=== PATIENT | male | born 1945 | race Caucasian/White ===

== ENCOUNTER 2017-08-05 02:23 | Inpatient (IN) | payer MEDICARE, OTHER ==
[~2017-08-05] VITALS: Ht 193 cm; Wt 100.3 kg
[2017-08-05 02:42] VITALS: BP 114/78; PULSE 109; RESP 20; TEMP 97.8; O2SAT 97
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
[2017-08-05 03:45] LABS: ALT (GPT) 25 U/L (12-78); ANION GAP 10 MEQ/L (5-15); AST (GOT) 24 U/L (15-37); BICARBONATE 24.7 MEQ/L (21.0-32.0); BLOOD UREA NITROGEN 32 MG/DL (7-18); CHLORIDE 105 MEQ/L (98-107); GLOMERULAR FILTRATION RATE 55 ML/MIN (>89); POTASSIUM 3.7 MEQ/L (3.5-5.1); SODIUM (NA) 140 MEQ/L (136-145)
[2017-08-05 03:46] LABS: ALCOHOL LESS THAN 3 MG/DL (0-5)
[2017-08-05 03:49] LABS: AUTOMATED NEUTROPHIL # 4.3 TH/MM3 (1.8-7.7); BASOPHIL # 0.1 TH/MM3 (0-0.2); BASOPHIL % 0.9 % (0.0-2.0); EOSINOPHIL # 0.5 TH/MM3 (0-0.4); HEMATOCRIT 31.1 % (39.0-51.0); HEMO FLAGS DIFF FINAL; LYMPH % 25.4 % (9.0-44.0); LYMPHOCYTE # 1.9 TH/MM3 (1.0-4.8); MEAN CELL VOLUME 92.5 FL (80.0-100.0); MEAN CORPUSCULAR HEMOGLOBIN 30.2 PG (27.0-34.0); MEAN CORPUSCULAR HGB CONC 32.6 % (32.0-36.0); MONO % 10.1 % (0.0-8.0); NEUT % 56.6 % (16.0-70.0); PLATELET COUNT 300 TH/MM3 (150-450); RED BLOOD COUNT 3.36 MIL/MM3 (4.50-5.90); WHITE BLOOD COUNT 7.6 TH/MM3 (4.0-11.0)
[2017-08-05 03:55] LABS: ALKALINE PHOSPHATASE 54 U/L (45-117); TOTAL BILIRUBIN ADULT 0.7 MG/DL (0.2-1.0)
[2017-08-05 06:20] VITALS: BP 124/83; PULSE 96; RESP 18; O2SAT 99
[2017-08-05 06:52] LABS: BLOOD, URINE NEG (NEG); COMMENT (UR) CULT NOT INDICATED; CULTURE IF INDICATED CULT NOT INDICATED; GLUCOSE,URINE NEG (NEG); HYALINE CAST, URINE 6 /lpf (RARE); KETONE, URINE 40 mg/dL (NEG); MUCUS URINE FEW /lpf (OCC); NITRITE,URINE NEG (NEG); URINE COLOR YELLOW (YELLW/STRAW)
[2017-08-05 08:45] VITALS: BP 91/60; PULSE 140; RESP 18; TEMP 98.5; O2SAT 96
[2017-08-05 10:19] VITALS: BP 111/69; PULSE 66; RESP 18
[2017-08-05] MEDS ORDERED: diphenhydrAMINE HCL 25 MG CAP PO ONE (14:15)
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
[2017-08-05] MEDS ORDERED: LORazepam 2 MG/ML VIAL IV PUSH PRN ×4 (15:00)
[2017-08-05] MEDS ORDERED: LORazepam 2 MG TAB PO PRN (15:00)
[2017-08-05] MEDS ORDERED: LORazepam 1 MG TAB PO PRN (15:00)
[2017-08-05] MEDS ORDERED: FLUMAZENIL 0.5 MG/5 ML VIAL IV PUSH PRN (15:00)
[2017-08-05 15:06] VITALS: BP 145/70; PULSE 101; RESP 16; TEMP 97.6
[2017-08-05] MEDS ORDERED: ALUMINUM/MAGNESIUM/SIMETH 30 ML CUP PO PRN (15:15)
[2017-08-05] MEDS ORDERED: MAGNESIUM HYDROXIDE SUSP 30 ML CUP PO PRN (15:15)
[2017-08-05] MEDS ORDERED: hydrOXYzine HCL 50 MG TAB PO PRN (15:15)
[2017-08-05] MEDS ORDERED: ACETAMINOPHEN 325 MG TAB PO PRN (15:15)
[2017-08-05] MEDS ORDERED: diphenhydrAMINE HCL 50 MG/ML VIAL - HS PRN IM (15:15)
[2017-08-05] MEDS ORDERED: diphenhydrAMINE HCL 50 MG CAP - HS PRN PO (15:15)
[2017-08-05] MEDS ORDERED: LORazepam 2 MG/ML VIAL - age > 65 yrs IM PRN (15:15)
[2017-08-05] MEDS ORDERED: traZODone HCL 50 MG TAB PO PRN (15:15)
[2017-08-05] MEDS ORDERED: LORazepam 0.5 MG TAB age > 65 yrs PO PRN (15:15)
[2017-08-05] MEDS ORDERED: cloNIDine HCL 0.1 MG TAB PO PRN (15:30)
[2017-08-05] MEDS ORDERED: diphenhydrAMINE HCL 50 MG/ML VIAL IM PRN (15:45)
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
[2017-08-05 16:31] LABS: APTT (PATIENT) 25.2 SEC (24.3-30.1); PROTHROMBIN TIME - PATIENT 10.8 SEC (9.8-11.6)
[2017-08-05] MEDS ORDERED: PERMETHRIN 5% CREAM 60 GM TOPICAL ONE ×2 (16:45→21:00)
[2017-08-05] MEDS: THIAMINE HCL 100 MG TAB PO SCH (18:09)
[2017-08-05] MEDS ORDERED: GADODIAMIDE PF 287 MG/ML 20 ML VIAL (for RAD MRI) IVCONTRAST ONE (20:00)
[2017-08-05] MEDS: REMOVE OLD NICOTINE PATCH T-DERMAL SCH (21:00)
--- NOTE | 2017-08-05 21:58 | RADRPT ---
EXAM DATE/TIME: 08/05/2017 21:17 [place] COMPARISON: No previous studies available for comparison. INDICATIONS : Confusion. CONTRAST: 20 cc Omniscan (gadodiamide) IV MEDICAL HISTORY : None. SURGICAL HISTORY : Total knee replacement, right. Colostomy. ENCOUNTER: Initial ACUITY: 1 day PAIN SCORE: 0/10 LOCATION: cranial TECHNIQUE: Multiplanar, multisequence MRI of the brain was performed both prior to and following the administrat ion of paramagnetic contrast. FINDINGS: CEREBRUM: The CSF spaces are enlarged.. No evidence of midline shift, mass lesion, hemorrhage or acute infarct ion. No extraaxial fluid collections are seen. Partial empty sella is noted. WHITE MATTER: Periventricular and subcortical white matter hyperintensities are identified. POSTERIOR FOSSA: The cerebellum and brainstem are intact. The 4th ventricle is midline. The cerebellopontine angle is unremarkable. The cerebellar tonsils are normal in position. DIFFUSION IMAGING: No focal areas of restricted diffusion are seen. No evidence of acute infarction. EXTRACRANIAL: The visualized portions of the orbits and paranasal sinuses are unremarkable. POST-CONTRAST: No abnormal areas of parenchymal or dural enhancement. No evidence of blood-brain barrier breakdown. CONCLUSION: 1. Generalized atrophy with diffuse volume loss and enlargement of the ventricles. 2. Mild to moderate T2 hyperintense changes in the cerebral white matter characteristic of chronic mi crovascular ischemic disease. 3. No evidence of acute infarct, hemorrhage, mass or edema. Mars Corona MD on August 05, 2017 at 21:53 Board Certified Radiologist. This report was verified electronically.
[2017-08-05] MEDS: MAGNESIUM OXIDE 400 MG TAB PO SCH (22:44)
[2017-08-05] MEDS: ATORVASTATIN 40 MG TAB PO SCH (22:45)
[2017-08-05] MEDS: LACTULOSE SYRUP 20 GM/30 ML CUP PO SCH (22:45)
[2017-08-05] MEDS: diphenhydrAMINE HCL 25 MG CAP PO PRN (22:45)
[2017-08-06 06:00] VITALS: BP 126/89; PULSE 90; RESP 18; TEMP 98.6; O2SAT 95
[2017-08-06] MEDS: NICOTINE 21 MG/24 HR PATCH T-DERMAL SCH (09:00)
[2017-08-06] MEDS: THIAMINE HCL 100 MG TAB PO SCH ×3 (09:14→18:00)
[2017-08-06] MEDS: ASPIRIN EC 81 MG TABEC PO SCH (09:14)
[2017-08-06] MEDS: PANTOPRAZOLE SOD 40 MG DELAYED RELEASE TAB PO SCH (09:14)
[2017-08-06] MEDS: MAGNESIUM OXIDE 400 MG TAB PO SCH ×2 (09:14→21:05)
[2017-08-06] MEDS: FOLIC ACID 1 MG TAB PO SCH (09:14)
[2017-08-06] MEDS: amLODIPine BESYLATE 5 MG TAB PO SCH (09:14)
[2017-08-06] MEDS: LACTULOSE SYRUP 20 GM/30 ML CUP PO SCH ×2 (09:15→21:04)
[2017-08-06 10:53] LABS: AUTOMATED NEUTROPHIL # 3.5 TH/MM3 (1.8-7.7); BASOPHIL # 0.1 TH/MM3 (0-0.2); EOSINOPHIL # 0.7 TH/MM3 (0-0.4); EOSINOPHIL % 11.7 % (0.0-4.0); HEMO FLAGS DIFF FINAL; LYMPH % 23.5 % (9.0-44.0); LYMPHOCYTE # 1.5 TH/MM3 (1.0-4.8); MEAN CORPUSCULAR HEMOGLOBIN 30.5 PG (27.0-34.0); MEAN CORPUSCULAR HGB CONC 32.8 % (32.0-36.0); MONO % 9.4 % (0.0-8.0); NEUT % 54.4 % (16.0-70.0); PLATELET COUNT 304 TH/MM3 (150-450); RED BLOOD COUNT 3.65 MIL/MM3 (4.50-5.90); RED CELL DISTRIBUTION WIDTH 15.2 % (11.6-17.2); WHITE BLOOD COUNT 6.3 TH/MM3 (4.0-11.0)
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
[2017-08-06] MEDS: FERROUS SULFATE 325 MG (65 MG ELEMENTAL IRON) TAB PO SCH ×2 (12:57→16:39)
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
[2017-08-06 14:05] LABS: HEMOGLOBIN A1a 1.1 %; HEMOGLOBIN A1b 0.8 %; HEMOGLOBIN Ao 85.1 %; HEMOGLOBIN P3 5.3 %
[2017-08-06 15:15] LABS: ANION GAP 7 MEQ/L (5-15); BICARBONATE 29.5 MEQ/L (21.0-32.0); BLOOD UREA NITROGEN 20 MG/DL (7-18); CHLORIDE 104 MEQ/L (98-107); GLOMERULAR FILTRATION RATE 90 ML/MIN (>89); MAGNESIUM 2.1 MG/DL (1.5-2.5); SODIUM (NA) 140 MEQ/L (136-145)
[2017-08-06 15:27] LABS: HDL CHOLESTEROL 46.2 MG/DL (40.0-60.0); LDL CHOLESTEROL 63 MG/DL (0-99)
[2017-08-06] MEDS: REMOVE OLD NICOTINE PATCH T-DERMAL SCH (21:00)
[2017-08-06] MEDS: hydrOXYzine HCL 50 MG TAB PO PRN (21:04)
[2017-08-06] MEDS: ATORVASTATIN 40 MG TAB PO SCH (21:05)
[2017-08-06] MEDS: diphenhydrAMINE HCL 25 MG CAP PO PRN (21:05)
[2017-08-07 06:00] VITALS: BP 115/64; PULSE 88; RESP 17; TEMP 99; O2SAT 99
--- NOTE | 2017-08-07 07:33 | HHI.PYPN ---
Subjective Remarks Patient seen and examined. Chart reviewed. Case discussed in treatment team. Per nursing staff, no behavioral issues overnight. Per counselor, she will follow up with [facility] about possible placement there later this week. On my exam, patient remains confused with poor judgement. He says he wants to " get out of here and go to the [facility]," although it is unclear what he will do when he gets there. He continues to speak of his as if she is alive. No physical complaints. Review of Systems ROS Limitations: Poor Historian Except as stated in HPI: all other systems reviewed are Neg Objective Alert: Yes [place]: Person, Place Mood: Calm Affect: Other (mildly irritable) Memory Intact: Comment (remains somewhat impaired on clinical exam) Hallucinations: Other (No AVH) Delusions: Yes Delusion Type: Other (that is still alive) Suicidal: Ideation (No SI) Homicidal: Ideation (No HI) Insight/Judgment Poor Remarks No abnormal motor movements noted. Grooming and hygiene fair. No signs of withdrawal and CIWAs have been 0. Labs Test 08/06/17 09:39 08/06/17 13:20 White Blood Count 6.3 TH/MM3 Red Blood Count 3.65 MIL/MM3 Hemoglobin 11.2 GM/DL Hematocrit 34.0 % Mean Corpuscular Volume 93.0 FL Mean Corpuscular Hemoglobin 30.5 PG Mean Corpuscular Hemoglobin Concent 32.8 % Red Cell Distribution Width 15.2 % Platelet Count 304 TH/MM3 Mean Platelet Volume 6.9 FL Neutrophils (%) (Auto) 54.4 % Lymphocytes (%) (Auto) 23.5 % Monocytes (%) (Auto) 9.4 % Eosinophils (%) (Auto) 11.7 % Basophils (%) (Auto) 1.0 % Neutrophils # (Auto) 3.5 TH/MM3 Lymphocytes # (Auto) 1.5 TH/MM3 Monocytes # (Auto) 0.6 TH/MM3 Eosinophils # (Auto) 0.7 TH/MM3 Basophils # (Auto) 0.1 TH/MM3 CBC Comment DIFF FINAL Differential Comment Blood Urea Nitrogen 20 MG/DL Creatinine 0.84 MG/DL Random Glucose 100 MG/DL Calcium Level 8.4 MG/DL Magnesium Level 2.1 MG/DL Sodium Level 140 MEQ/L Potassium Level 4.0 MEQ/L Chloride Level 104 MEQ/L Carbon Dioxide Level 29.5 MEQ/L Anion Gap 7 MEQ/L Estimat Glomerular Filtration Rate 90 ML/MIN Hemoglobin A1c 5.6 % Triglycerides Level 70 MG/DL Cholesterol Level 123 MG/DL LDL Cholesterol 63 MG/DL HDL Cholesterol 46.2 MG/DL Cholesterol/HDL Ratio 2.66 RATIO Labs reviewed. Anemia improving. GFR improved. MRI brain results reviewed. Atrophy and chronic small vessel disease noted. Reversible causes of dementia labs negative. 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 I will start Aricept 5mg qHS for cognitive impairment. No signs of withdrawal. D/c CIWA. Continue to monitor on the inpatient unit. Continue other medications and care as ordered. Justification for Cont. Inpt. Med changes. High risk for decompensation in less restrictive environment. Discharge Planning Possible transfer to [facility] choice facility later this week. Case discussed with counselor. Request HC Surrog/Guard Advoc?: Yes Jorge Tavera MD Aug 07, 2017 07:33
[2017-08-07] MEDS: LACTULOSE SYRUP 20 GM/30 ML CUP PO SCH ×2 (08:45→20:20)
[2017-08-07] MEDS: THIAMINE HCL 100 MG TAB PO SCH ×3 (08:46→18:57)
[2017-08-07] MEDS: PANTOPRAZOLE SOD 40 MG DELAYED RELEASE TAB PO SCH (08:46)
[2017-08-07] MEDS: amLODIPine BESYLATE 5 MG TAB PO SCH (08:46)
[2017-08-07] MEDS: FOLIC ACID 1 MG TAB PO SCH (08:46)
[2017-08-07] MEDS: MAGNESIUM OXIDE 400 MG TAB PO SCH ×2 (08:46→20:20)
[2017-08-07] MEDS: ASPIRIN EC 81 MG TABEC PO SCH (08:46)
[2017-08-07] MEDS: NICOTINE 21 MG/24 HR PATCH T-DERMAL SCH (08:48)
[2017-08-07] MEDS: FERROUS SULFATE 325 MG (65 MG ELEMENTAL IRON) TAB PO SCH ×2 (11:51→18:57)
[2017-08-07] MEDS: hydrOXYzine HCL 50 MG TAB PO PRN (20:21)
[2017-08-07] MEDS: DONEPEZIL HCL 5 MG TAB PO SCH (20:21)
[2017-08-07] MEDS: diphenhydrAMINE HCL 25 MG CAP PO PRN (20:21)
[2017-08-07] MEDS: ATORVASTATIN 40 MG TAB PO SCH (20:21)
[2017-08-07] MEDS: REMOVE OLD NICOTINE PATCH T-DERMAL SCH (21:00)
[2017-08-08 06:17] VITALS: BP 100/57; PULSE 117; RESP 16; TEMP 98.3; O2SAT 97
--- NOTE | 2017-08-08 07:20 | HHI.PYPN ---
Subjective Remarks Patient seen and examined. Chart reviewed. Case discussed with nursing staff who reports that the patient is somewhat intrusive but no real behavioral problem. On my examination today, the patient remains confused. He believes that he is in [place]. He is able to give the month and year however. He asks me to get his cell phone so that he can call his , saying the 2 haven't spoken in 2 weeks. Mood is described as okay. He denies AVH. No side effects from medications. No physical complaints. He is agreeable to assisted living placement. Review of Systems ROS Limitations: Poor Historian Except as stated in HPI: all other systems reviewed are Neg Objective Alert: Yes [place]: Person, Place Mood: Calm Affect: Blunted Memory Intact: Comment (impaired) Hallucinations: Other (None) Delusions: Yes Delusion Type: Other (continues to believe that is still alive) Suicidal: Ideation (No SI) Homicidal: Ideation (No HI) Insight/Judgment Poor Remarks No motor abnormalities noted. No signs or withdrawal. Labs Labs reviewed. 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 Patient continues to articulate belief that is still alive, but this does not seem very impairing looking at the totality of his case, and I see no indication for antipsychotic treatment at this time. Continue to monitor on the inpatient unit. Continue other medications and care as ordered. Justification for Cont. Inpt. Risk for decompensation Discharge Planning Placement Request HC Surrog/Guard Advoc?: Yes Jorge Tavera MD Aug 08, 2017 07:20
[2017-08-08] MEDS: NICOTINE 21 MG/24 HR PATCH T-DERMAL SCH (09:00)
[2017-08-08] MEDS: FOLIC ACID 1 MG TAB PO SCH (09:51)
[2017-08-08] MEDS: amLODIPine BESYLATE 5 MG TAB PO SCH (09:51)
[2017-08-08] MEDS: THIAMINE HCL 100 MG TAB PO SCH ×3 (09:51→17:50)
[2017-08-08] MEDS: LACTULOSE SYRUP 20 GM/30 ML CUP PO SCH ×2 (09:51→21:21)
[2017-08-08] MEDS: MAGNESIUM OXIDE 400 MG TAB PO SCH ×2 (09:51→21:18)
[2017-08-08] MEDS: ASPIRIN EC 81 MG TABEC PO SCH (09:52)
[2017-08-08] MEDS: PANTOPRAZOLE SOD 40 MG DELAYED RELEASE TAB PO SCH (09:52)
[2017-08-08] MEDS: FERROUS SULFATE 325 MG (65 MG ELEMENTAL IRON) TAB PO SCH ×2 (11:50→16:37)
[2017-08-08] MEDS: DONEPEZIL HCL 5 MG TAB PO SCH (21:00)
[2017-08-08] MEDS: REMOVE OLD NICOTINE PATCH T-DERMAL SCH (21:00)
[2017-08-08] MEDS: hydrOXYzine HCL 50 MG TAB PO PRN (21:18)
[2017-08-08] MEDS: ATORVASTATIN 40 MG TAB PO SCH (21:18)
[2017-08-08] MEDS: diphenhydrAMINE HCL 25 MG CAP PO PRN (21:18)
[2017-08-09] MEDS: hydrOXYzine HCL 50 MG TAB PO PRN (03:00)
[2017-08-09 05:31] VITALS: BP 134/71; PULSE 105; RESP 18; TEMP 96.7; O2SAT 97
[2017-08-09] MEDS: ASPIRIN EC 81 MG TABEC PO SCH (09:00)
[2017-08-09] MEDS: FOLIC ACID 1 MG TAB PO SCH (09:00)
[2017-08-09] MEDS: LACTULOSE SYRUP 20 GM/30 ML CUP PO SCH ×2 (09:00→21:46)
[2017-08-09] MEDS: amLODIPine BESYLATE 5 MG TAB PO SCH (09:00)
[2017-08-09] MEDS: PANTOPRAZOLE SOD 40 MG DELAYED RELEASE TAB PO SCH (09:00)
[2017-08-09] MEDS: NICOTINE 21 MG/24 HR PATCH T-DERMAL SCH (09:00)
[2017-08-09] MEDS: MAGNESIUM OXIDE 400 MG TAB PO SCH ×2 (09:00→21:46)
[2017-08-09] MEDS: THIAMINE HCL 100 MG TAB PO SCH ×3 (09:00→17:58)
[2017-08-09] MEDS ORDERED: NALOXONE HCL 0.4 MG/ML AMP IV PUSH PRN (09:45)
[2017-08-09] MEDS ORDERED: PROCHLORPERAZINE 25 MG SUPP RECTAL PRN (09:45)
[2017-08-09] MEDS ORDERED: PERMETHRIN 1% LOTION 60 ML BTL TOPICAL ONE (10:00)
--- NOTE | 2017-08-09 11:18 | HHI.PYPN ---
Subjective Remarks Patient seen and examined with nurseTarik. Chart reviewed. Case discussed with nursing staff who reports patient had small emesis yesterday afternoon and larger emesis this morning. Hospitalist has already evaluated patient and ordered CT A/P, Compazine suppositories and labs. On my eval, patient is in moderate distress due to ongoing nausea, although he denies ongoing emesis. Says he moved his bowels yesterday. Feels a little dizzy. Abdomen not distended but diffusely tender on exam. No psychiatric complaints at this time. No other physical complaints. Review of Systems ROS Limitations: Poor Historian Except as stated in HPI: all other systems reviewed are Neg Objective Alert: Yes [place]: Person, Place Mood: Anxious Affect: Blunted Memory Intact: Comment (Not formally assessed) Hallucinations: Other (No AVH) Delusions: Yes Delusion Type: Other (None) Suicidal: Ideation (No SI) Homicidal: Ideation (No HI) Insight/Judgment Poor Remarks No motor abnormalities noted. Labs Labs reviewed. 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 NPO except for meds pending CT A/ P to ensure there is no obstruction. Vitals q4h. Transfer to [facility] unit for close monitoring of patient's medical condition. Appreciate hospitalist input. Continue other meds and care as ordered. I have updated patient's niece and HCS regarding patient's change in status over the phone; she notes he has a history of obstruction in the past. Justification for Cont. Inpt. Complicating condition. Risk for decompensation in less restrictive environment. Discharge Planning Placement once patient's medical condition improves. Request HC Surrog/Guard Advoc?: Yes Jorge Tavera MD Aug 09, 2017 11:18
[2017-08-09] MEDS: FERROUS SULFATE 325 MG (65 MG ELEMENTAL IRON) TAB PO SCH ×2 (12:00→17:00)
[2017-08-09 13:00] VITALS: BP 134/72; PULSE 90; RESP 20; TEMP 100.1
--- NOTE | 2017-08-09 14:20 | HHI.PR ---
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 He doesn't have any fever. Doesn't have diarrhea. Says he has associated abdominal pain with nausea and vomiting. Says he had previous abdominal surgeries for ischemic bowel /ileus Doesn't have a GI doctor. Objective Vitals Vital Signs Date Time Temp Pulse Resp B/P (MAP) Pulse Ox O2 Delivery O2 Flow Rate FiO2 08/09/17 13:00 100.1 90 20 134/72 (92) 08/09/17 05:31 96.7 105 18 134/71 (92) 97 I/O 08/08/17 08/08/17 08/08/17 08/09/17 08/09/17 08/09/17 07:00 15:00 23:00 07:00 15:00 23:00 Intake Total 0 ml 30 ml Balance 0 ml 30 ml Intake Oral 0 ml 30 ml # Voids 3 Result Diagram: 08/06/17 0939 08/06/17 1320 Imaging Last Impressions Brain MRI 08/05/17 0000 Signed Impressions: Service Date/Time: Saturday, August 05, 2017 21:17 - CONCLUSION: 1. Generalized atrophy with diffuse volume loss and enlargement of the ventricles. 2. Mild to moderate T2 hyperintense changes in the cerebral white matter characteristic of chronic microvascular ischemic disease. 3. No evidence of acute infarct, hemorrhage, mass or edema. Mars Corona MD Objective Remarks GENERAL: This is a well-nourished, well-developed patient, in no apparent distress. SKIN: Diffused healing excoriating lesions with erythema that has improved significantly. NECK: Trachea midline. No JVD or lymphadenopathy. Supple, nontender, no meningeal signs. CARDIOVASCULAR: Regular rate and rhythm without murmurs, gallops, or rubs. RESPIRATORY: Clear to auscultation. Breath sounds equal bilaterally. No wheezes , rales, or rhonchi. GASTROINTESTINAL: Abdomen soft, diffuse tenderness, nondistended, + BS x 4Q. No guarding. A/P Assessment and Plan 72-year-old male who was Wilkinson act Backer Act due to abnormal behavior -Management per psychiatrist. Abdominal pain/ nausea and vomiting. Constipation. Poss ileus, poss adhesions, patient with h/o abdominal surgeries Maxi, compazine as need for nausea/vomiting. Will do stat CT abd/pelvis. Patient however doesn't tolerate contrast Will consider GS eval Anemia -No signs of active bleeding. --Most likely secondary to malnutrition from alcohol abuse . If hemoglobin stable can be worked up as outpatient. -Pending labs from today. Diffused pruritus with excoriated wound -No signs of infection. s/p permethrin treatment with drastic improvement.. Discussed with the patient,. nurse Will follow along Mary Vargas MD Aug 09, 2017 14:20
[2017-08-09] MEDS ORDERED: ONDANSETRON HCL 4 MG/2 ML VIAL IV PUSH PRN (14:30)
--- NOTE | 2017-08-09 17:01 | RADRPT ---
EXAM DATE/TIME: 08/09/2017 16:35 [place] COMPARISON: No previous studies available for comparison. INDICATIONS : Diffuse abdomen pain. ORAL CONTRAST: No oral contrast ingested. RADIATION DOSE: 12.65 CTDIvol (mGy) MEDICAL HISTORY : Hypertension. Seizures. SURGICAL HISTORY : Appendectomy. Bowel repair. ENCOUNTER: Initial ACUITY: 1 day PAIN SCALE: 2/10 LOCATION: Bilateral upper quadrant TECHNIQUE: Volumetric scanning of the abdomen and pelvis was performed. Using automated exposure control and ad justment of the mA and/or kV according to patient size, radiation dose was kept as low as reasonably achievable to obtain optimal diagnostic quality images. DICOM format image data is available electro nically for review and comparison. FINDINGS: The limited portion of the lung base visualized is clear. The appearance of the liver, spleen, pancreas, adrenal glands and right kidney are normal in appearan ce. Note is made of a 7.3 x 5.1 cm cyst arising from the left kidney. There is no free intraperitoneal air. There is no retroperitoneal lymphadenopathy. The aorta is aubrey l in caliber. Examination of the visualized loops of small large bowel demonstrate some subtle inflammatory changes surrounding multiple loops of small bowel within the mid abdomen. There is minimal fluid adjacent to the suggesting a nonspecific enteritis. No findings to indicate bowel obstruction are seen. There is no free fluid within the pelvis. No iliac or inguinal adenopathy is present. There is a mode rate amount of stool within the distal sigmoid colon and rectum. There are postsurgical changes in the anterior abdominal wall. There is a small left inguinal hernia. The visualized osseous structures demonstrate degenerative changes but are otherwise intact. CONCLUSION: 1. There is a small amount of free fluid in some subtle inflammatory changes surrounding multiple loo ps of small bowel in the midabdomen. This is nonspecific in appearance. No findings to indicate a bow el obstruction are seen. No free air is present. 2. 7.3 x 5.2 cm cyst arising from the left kidney. 3. Left inguinal hernia. 4. Patient is post ventral hernia repair. Jabier Sandoval MD on August 09, 2017 at 16:54 Board Certified Radiologist. This report was verified electronically.
[2017-08-09 18:17] LABS: AUTOMATED NEUTROPHIL # 2.7 TH/MM3 (1.8-7.7); BASOPHIL % 0.6 % (0.0-2.0); EOSINOPHIL # 0.1 TH/MM3 (0-0.4); EOSINOPHIL % 2.4 % (0.0-4.0); HEMATOCRIT 38.5 % (39.0-51.0); HEMO FLAGS DIFF FINAL; LYMPH % 29.4 % (9.0-44.0); LYMPHOCYTE # 1.5 TH/MM3 (1.0-4.8); MEAN CELL VOLUME 92.9 FL (80.0-100.0); MEAN CORPUSCULAR HEMOGLOBIN 30.7 PG (27.0-34.0); MONO % 13.2 % (0.0-8.0); NEUT % 54.4 % (16.0-70.0); PLATELET COUNT 387 TH/MM3 (150-450); RED BLOOD COUNT 4.14 MIL/MM3 (4.50-5.90); RED CELL DISTRIBUTION WIDTH 15.2 % (11.6-17.2)
[2017-08-09 18:32] VITALS: BP 125/58; PULSE 100; RESP 18; TEMP 97.1; O2SAT 96
[2017-08-09 18:45] LABS: ALKALINE PHOSPHATASE 63 U/L (45-117); ALT (GPT) 19 U/L (12-78); ANION GAP 6 MEQ/L (5-15); AST (GOT) 14 U/L (15-37); BICARBONATE 30.5 MEQ/L (21.0-32.0); BLOOD UREA NITROGEN 31 MG/DL (7-18); CHLORIDE 108 MEQ/L (98-107); GLOMERULAR FILTRATION RATE 54 ML/MIN (>89); POTASSIUM 4.4 MEQ/L (3.5-5.1); SODIUM (NA) 144 MEQ/L (136-145); TOTAL BILIRUBIN ADULT 0.7 MG/DL (0.2-1.0)
[2017-08-09] MEDS: REMOVE OLD NICOTINE PATCH T-DERMAL SCH (21:00)
[2017-08-09] MEDS: DOCUSATE SODIUM 50 MG/SENNA 8.6 MG TAB PO SCH (21:46)
[2017-08-09] MEDS: ATORVASTATIN 40 MG TAB PO SCH (21:46)
[2017-08-10 05:56] VITALS: BP 143/78; PULSE 97; RESP 16; TEMP 97; O2SAT 97
--- NOTE | 2017-08-10 07:53 | HHI.PYPN ---
Subjective Remarks Patient seen and examined with nurse. Chart reviewed. Case discussed with nursing staff who reports the patient had a large bowel movement yesterday. No further emesis. CT abdomen/pelvis results reviewed. Patient has been placed on a liquid diet by the hospitalist. On my exam this morning, patient is in no physical distress. He is calm and cooperative with exam. He denies ongoing nausea or vomiting. He denies AVH. He is oriented to person, place and month/ year. No side effects from medications. No new physical complaints. Review of Systems ROS Limitations: Poor Historian Except as stated in HPI: all other systems reviewed are Neg Objective Alert: Yes [place]: Person, Place Mood: Calm Affect: Appropriate Memory Intact: Comment (somewhat impaired on clinical exam) Hallucinations: Other (denies AVH) Delusions: No Delusion Type: Other (no delusional material) Suicidal: Ideation (no SI voiced) Homicidal: Ideation (no HI voiced) Insight/Judgment Poor Remarks No motor abnormalities noted. Minimal tenderness to palpation on abdominal exam today. Abdomen is soft. Labs Test 08/09/17 17:50 White Blood Count 5.0 TH/MM3 Red Blood Count 4.14 MIL/MM3 Hemoglobin 12.7 GM/DL Hematocrit 38.5 % Mean Corpuscular Volume 92.9 FL Mean Corpuscular Hemoglobin 30.7 PG Mean Corpuscular Hemoglobin Concent 33.0 % Red Cell Distribution Width 15.2 % Platelet Count 387 TH/MM3 Mean Platelet Volume 7.4 FL Neutrophils (%) (Auto) 54.4 % Lymphocytes (%) (Auto) 29.4 % Monocytes (%) (Auto) 13.2 % Eosinophils (%) (Auto) 2.4 % Basophils (%) (Auto) 0.6 % Neutrophils # (Auto) 2.7 TH/MM3 Lymphocytes # (Auto) 1.5 TH/MM3 Monocytes # (Auto) 0.7 TH/MM3 Eosinophils # (Auto) 0.1 TH/MM3 Basophils # (Auto) 0.0 TH/MM3 CBC Comment DIFF FINAL Differential Comment Blood Urea Nitrogen 31 MG/DL Creatinine 1.31 MG/DL Random Glucose 116 MG/DL Total Protein 7.2 GM/DL Albumin 3.0 GM/DL Calcium Level 8.7 MG/DL Alkaline Phosphatase 63 U/L Aspartate Amino Transf (AST/SGOT) 14 U/L Alanine Aminotransferase (ALT/SGPT) 19 U/L Total Bilirubin 0.7 MG/DL Sodium Level 144 MEQ/L Potassium Level 4.4 MEQ/L Chloride Level 108 MEQ/L Carbon Dioxide Level 30.5 MEQ/L Anion Gap 6 MEQ/L Estimat Glomerular Filtration Rate 54 ML/MIN Labs reviewed. CBC from today pending. CMP reveals improving GFR. CT abdomen and pelvis negative for obstruction. Last Impressions Abdomen/Pelvis CT 08/09/17 0000 Signed Impressions: Service Date/Time: July 16:35 - CONCLUSION: 1. There is a small amount of free fluid in some subtle inflammatory changes surrounding multiple loops of small bowel in the midabdomen. This is nonspecific in appearance. No findings to indicate a bowel obstruction are seen. No free air is present. 2. 7.3 x 5.2 cm cyst arising from the left kidney. 3. Left inguinal hernia. 4. Patient is post ventral hernia repair. Jabier Sandoval MD Brain MRI 08/05/17 0000 Signed Impressions: Service Date/Time: Saturday, August 05, 2017 21:17 - CONCLUSION: 1. Generalized atrophy with diffuse volume loss and enlargement of the ventricles. 2. Mild to moderate T2 hyperintense changes in the cerebral white matter characteristic of chronic microvascular ischemic disease. 3. No evidence of acute infarct, hemorrhage, mass or edema. 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 Continue to hold Aricept. Case discussed with Dr. Vargas from hospitalist service. We will advance diet as tolerated. Continue to monitor on the medical psychiatric unit. Continue other medications and care as ordered. Justification for Cont. Inpt. Risk for decompensation in less restrictive environment. Discharge Planning So long as patient continues to improve medically, anticipate possible discharge to facility Sunday. Case d/w counselor. Request HC Surrog/Guard Advoc?: Yes Jorge Tavera MD Aug 10, 2017 07:53
[2017-08-10] MEDS: NICOTINE 21 MG/24 HR PATCH T-DERMAL SCH (08:20)
[2017-08-10] MEDS: LACTULOSE SYRUP 20 GM/30 ML CUP PO SCH ×2 (08:21→20:52)
[2017-08-10] MEDS: MAGNESIUM OXIDE 400 MG TAB PO SCH ×2 (08:29→20:49)
[2017-08-10] MEDS: DOCUSATE SODIUM 50 MG/SENNA 8.6 MG TAB PO SCH ×2 (08:29→20:52)
[2017-08-10] MEDS: PANTOPRAZOLE SOD 40 MG DELAYED RELEASE TAB PO SCH (08:29)
[2017-08-10] MEDS: ASPIRIN EC 81 MG TABEC PO SCH (08:29)
[2017-08-10] MEDS: amLODIPine BESYLATE 5 MG TAB PO SCH (08:29)
[2017-08-10] MEDS: FOLIC ACID 1 MG TAB PO SCH (08:29)
[2017-08-10] MEDS: THIAMINE HCL 100 MG TAB PO SCH ×3 (08:29→16:45)
--- NOTE | 2017-08-10 09:10 | HHI.PR ---
Subjective Remarks In bed, says he feels improves since yesterday. No more nausea, no vomiting. Had a large BM yesterday, none since yesterday. Will try to eat today and see if he can hold down./ No fever ro chills. Abdominal pain minimal. Objective Vitals Vital Signs Date Time Temp Pulse Resp B/P (MAP) Pulse Ox O2 Delivery O2 Flow Rate FiO2 08/10/17 05:56 97.0 97 16 143/78 (99) 97 08/09/17 18:32 97.1 100 18 125/58 (80) 96 08/09/17 13:00 100.1 90 20 134/72 (92) I/O 08/09/17 08/09/17 08/09/17 08/10/17 08/10/17 08/10/17 07:00 15:00 23:00 07:00 15:00 23:00 Intake Total 30 ml 1080 ml Balance 30 ml 1080 ml Intake Oral 30 ml 1080 ml # Voids 2 1 Result Diagram: 08/09/17 1750 08/09/17 175 Imaging Last Impressions Abdomen/Pelvis CT 08/09/17 0000 Signed Impressions: Service Date/Time: July 16:35 - CONCLUSION: 1. There is a small amount of free fluid in some subtle inflammatory changes surrounding multiple loops of small bowel in the midabdomen. This is nonspecific in appearance. No findings to indicate a bowel obstruction are seen. No free air is present. 2. 7.3 x 5.2 cm cyst arising from the left kidney. 3. Left inguinal hernia. 4. Patient is post ventral hernia repair. Jabier Sandoval MD Brain MRI 08/05/17 0000 Signed Impressions: Service Date/Time: Saturday, August 05, 2017 21:17 - CONCLUSION: 1. Generalized atrophy with diffuse volume loss and enlargement of the ventricles. 2. Mild to moderate T2 hyperintense changes in the cerebral white matter characteristic of chronic microvascular ischemic disease. 3. No evidence of acute infarct, hemorrhage, mass or edema. Mars Corona MD Objective Remarks GENERAL: This is a well-nourished, well-developed patient, in no apparent distress. SKIN: Diffused healing excoriating lesions with erythema that has improved significantly. NECK: Trachea midline. No JVD or lymphadenopathy. Supple, nontender, no meningeal signs. CARDIOVASCULAR: Regular rate and rhythm without murmurs, gallops, or rubs. RESPIRATORY: Clear to auscultation. Breath sounds equal bilaterally. No wheezes , rales, or rhonchi. GASTROINTESTINAL: Abdomen soft, diffuse tenderness, nondistended, + BS x 4Q. No guarding. A/P Assessment and Plan 72-year-old male who was [place] act Backer Act due to abnormal behavior -Management per psychiatrist. Abdominal pain/ nausea and vomiting. Constipation. Improved. Zoan compazine as need for nausea/vomiting. CT abd/pelvis reviewed no ileus. Anemia -No signs of active bleeding. --Most likely secondary to malnutrition from alcohol abuse . If hemoglobin stable can be worked up as outpatient. -Pending labs from today. Diffused pruritus with excoriated wound -No signs of infection. s/p permethrin treatment with drastic improvement.. Discussed with the patient,. nurse Will follow along Mary Vargas MD Aug 10, 2017 09:10
[2017-08-10 09:44] LABS: ANION GAP 6 MEQ/L (5-15); AST (GOT) 15 U/L (15-37); BLOOD UREA NITROGEN 27 MG/DL (7-18); CHLORIDE 104 MEQ/L (98-107); GLOMERULAR FILTRATION RATE 71 ML/MIN (>89); POTASSIUM 3.9 MEQ/L (3.5-5.1); SODIUM (NA) 136 MEQ/L (136-145)
[2017-08-10 09:45] LABS: ALT (GPT) 16 U/L (12-78)
[2017-08-10 09:48] LABS: ALKALINE PHOSPHATASE 57 U/L (45-117); TOTAL BILIRUBIN ADULT 0.7 MG/DL (0.2-1.0)
[2017-08-10] MEDS: FERROUS SULFATE 325 MG (65 MG ELEMENTAL IRON) TAB PO SCH ×2 (12:00→16:45)
[2017-08-10] MEDS: hydrOXYzine HCL 50 MG TAB PO PRN (12:04)
[2017-08-10 13:41] LABS: AUTOMATED NEUTROPHIL # 3.9 TH/MM3 (1.8-7.7); BASOPHIL # 0.2 TH/MM3 (0-0.2); BASOPHIL % 2.1 % (0.0-2.0); EOSINOPHIL # 0.6 TH/MM3 (0-0.4); EOSINOPHIL % 7.6 % (0.0-4.0); HEMATOCRIT 36.7 % (39.0-51.0); HEMO FLAGS DIFF FINAL; LYMPH % 29.7 % (9.0-44.0); LYMPHOCYTE # 2.2 TH/MM3 (1.0-4.8); MEAN CORPUSCULAR HEMOGLOBIN 30.4 PG (27.0-34.0); MEAN CORPUSCULAR HGB CONC 32.7 % (32.0-36.0); MONO % 8.2 % (0.0-8.0); NEUT % 52.4 % (16.0-70.0); PLATELET COUNT 371 TH/MM3 (150-450); RED BLOOD COUNT 3.94 MIL/MM3 (4.50-5.90); RED CELL DISTRIBUTION WIDTH 15.3 % (11.6-17.2); WHITE BLOOD COUNT 7.5 TH/MM3 (4.0-11.0)
[2017-08-10] MEDS ORDERED: EUCERIN CREAM 120 GM JAR TOPICAL PRN (14:00)
[2017-08-10 17:42] VITALS: BP 113/66; PULSE 90; RESP 18; TEMP 97.7; O2SAT 95
[2017-08-10] MEDS ORDERED: ONDANSETRON ODT 4 MG TAB PO PRN (17:45)
[2017-08-10] MEDS: ATORVASTATIN 40 MG TAB PO SCH (20:49)
[2017-08-10] MEDS: REMOVE OLD NICOTINE PATCH T-DERMAL SCH (21:00)
[2017-08-10 22:00] VITALS: BP 109/68; PULSE 92; RESP 17; TEMP 97.7; O2SAT 99
[2017-08-11 01:02] VITALS: BP 115/58; PULSE 97; RESP 16; O2SAT 100
[2017-08-11] MEDS: diphenhydrAMINE HCL 25 MG CAP PO PRN ×2 (03:26→21:14)
[2017-08-11 03:49] VITALS: BP 100/60; PULSE 94; RESP 18; TEMP 98.3; O2SAT 96
[2017-08-11 06:13] VITALS: BP 123/58; PULSE 107; RESP 16; TEMP 98.2; O2SAT 98
[2017-08-11] MEDS: NICOTINE 21 MG/24 HR PATCH T-DERMAL SCH (09:00)
[2017-08-11] MEDS: LACTULOSE SYRUP 20 GM/30 ML CUP PO SCH ×2 (09:00→21:13)
--- NOTE | 2017-08-11 09:09 | HHI.PR ---
Subjective Remarks No n/v/d/c. No abdominal pain .However patient still with pruritus arms and legs ans excoriations, will treat with permethrin, discussed with the patient and the nurse. No fever or chills. Objective Vitals Vital Signs Date Time Temp Pulse Resp B/P (MAP) Pulse Ox O2 Delivery O2 Flow Rate FiO2 08/11/17 06:13 98.2 107 16 123/58 (79) 98 08/11/17 03:49 98.3 94 18 100/60 (73) 96 08/11/17 01:02 97 16 115/58 (77) 100 08/10/17 22:00 97.7 92 17 109/68 (82) 99 08/10/17 17:42 97.7 90 18 113/66 (82) 95 I/O 08/10/17 08/10/17 08/10/17 08/11/17 08/11/17 08/11/17 07:00 15:00 23:00 07:00 15:00 23:00 Intake Total 720 ml 360 ml Balance 720 ml 360 ml Intake Oral 720 ml 360 ml # Voids 1 1 1 4 Result Diagram: 08/10/17 1205 08/10/17 0852 Imaging Last Impressions Abdomen/Pelvis CT 08/09/17 0000 Signed Impressions: Service Date/Time: July 16:35 - CONCLUSION: 1. There is a small amount of free fluid in some subtle inflammatory changes surrounding multiple loops of small bowel in the midabdomen. This is nonspecific in appearance. No findings to indicate a bowel obstruction are seen. No free air is present. 2. 7.3 x 5.2 cm cyst arising from the left kidney. 3. Left inguinal hernia. 4. Patient is post ventral hernia repair. Jabier Sandoval MD Brain MRI 08/05/17 0000 Signed Impressions: Service Date/Time: Saturday, August 05, 2017 21:17 - CONCLUSION: 1. Generalized atrophy with diffuse volume loss and enlargement of the ventricles. 2. Mild to moderate T2 hyperintense changes in the cerebral white matter characteristic of chronic microvascular ischemic disease. 3. No evidence of acute infarct, hemorrhage, mass or edema. Mars Corona MD Objective Remarks GENERAL: This is a well-nourished, well-developed patient, in no apparent distress. SKIN: Diffused excoriating lesions with erythema. NECK: Trachea midline. No JVD or lymphadenopathy. Supple, nontender, no meningeal signs. CARDIOVASCULAR: Regular rate and rhythm without murmurs, gallops, or rubs. RESPIRATORY: Clear to auscultation. Breath sounds equal bilaterally. No wheezes , rales, or rhonchi. GASTROINTESTINAL: Abdomen soft, diffuse tenderness, nondistended, + BS x 4Q. No guarding. A/P Assessment and Plan 72-year-old male who was [place] act Backer Act due to abnormal behavior -Management per psychiatrist. Abdominal pain/ nausea and vomiting. Constipation. Improved. Zofran, compazine as need for nausea/vomiting. CT abd/pelvis reviewed no ileus. Anemia -No signs of active bleeding. --Most likely secondary to malnutrition from alcohol abuse . If hemoglobin stable can be worked up as outpatient. -Pending labs from today. Diffused pruritus with excoriated wound -No signs of infection. Will retreat with permethrin Discussed with the patient, nurse Will follow along Mary Vargas MD Aug 11, 2017 09:09
[2017-08-11] MEDS: PANTOPRAZOLE SOD 40 MG DELAYED RELEASE TAB PO SCH (09:14)
[2017-08-11] MEDS ORDERED: PERMETHRIN 5% CREAM 60 GM TOPICAL ONE (09:15)
[2017-08-11] MEDS: ASPIRIN EC 81 MG TABEC PO SCH (09:15)
[2017-08-11] MEDS: FOLIC ACID 1 MG TAB PO SCH (09:15)
[2017-08-11] MEDS: MAGNESIUM OXIDE 400 MG TAB PO SCH ×2 (09:16→21:14)
[2017-08-11] MEDS: THIAMINE HCL 100 MG TAB PO SCH ×3 (09:16→17:02)
[2017-08-11] MEDS: amLODIPine BESYLATE 5 MG TAB PO SCH (09:16)
[2017-08-11] MEDS: DOCUSATE SODIUM 50 MG/SENNA 8.6 MG TAB PO SCH ×2 (09:16→21:14)
[2017-08-11] MEDS: FERROUS SULFATE 325 MG (65 MG ELEMENTAL IRON) TAB PO SCH ×2 (12:31→17:02)
--- NOTE | 2017-08-11 13:47 | HHI.PYPN ---
Subjective Remarks Patient was seen today for psychiatric evaluation, patient is on calm, cooperative, very pleasant. Patient is a little flat with restricted affect. But, he denies depressive symptoms, he reports good mood today, oriented 3, denies suicidal and homicidal ideation, he denies visual and auditory hallucinations. Compliant with his medications, no significant side effects. 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 Inpt. Patient has an elevated risk to decompensate at a lower level of care. Request HC Surrog/Guard Advoc?: Yes Trever Hernandez MD Aug 11, 2017 13:47
[2017-08-11 16:00] VITALS: BP 119/66; PULSE 92; RESP 17; TEMP 98.5; O2SAT 98
[2017-08-11] MEDS: REMOVE OLD NICOTINE PATCH T-DERMAL SCH (21:00)
[2017-08-11] MEDS: ATORVASTATIN 40 MG TAB PO SCH (21:14)
[2017-08-11 22:09] VITALS: BP 119/66; PULSE 92; RESP 17; TEMP 98.5; O2SAT 98
[2017-08-12] MEDS ORDERED: HALOPERIDOL LACTATE 5 MG/ML AMP IM SCH (01:15)
[2017-08-12 01:45] VITALS: BP 110/55; PULSE 85; RESP 18; TEMP 99; O2SAT 95
[2017-08-12 06:06] VITALS: BP 131/74; PULSE 81; RESP 17; TEMP 98.1; O2SAT 97
[2017-08-12] MEDS: PANTOPRAZOLE SOD 40 MG DELAYED RELEASE TAB PO SCH (08:58)
[2017-08-12] MEDS: ASPIRIN EC 81 MG TABEC PO SCH (08:58)
[2017-08-12] MEDS: THIAMINE HCL 100 MG TAB PO SCH ×3 (08:59→17:21)
[2017-08-12] MEDS: DOCUSATE SODIUM 50 MG/SENNA 8.6 MG TAB PO SCH ×2 (08:59→20:24)
[2017-08-12] MEDS: LACTULOSE SYRUP 20 GM/30 ML CUP PO SCH ×2 (08:59→20:24)
[2017-08-12] MEDS: MAGNESIUM OXIDE 400 MG TAB PO SCH ×2 (08:59→20:24)
[2017-08-12] MEDS: amLODIPine BESYLATE 5 MG TAB PO SCH (08:59)
[2017-08-12] MEDS: FOLIC ACID 1 MG TAB PO SCH (08:59)
[2017-08-12] MEDS: NICOTINE 21 MG/24 HR PATCH T-DERMAL SCH (09:00)
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
[2017-08-12] MEDS ORDERED: ASCORBIC ACID 500 MG TAB PO ONE (09:45)
[2017-08-12] MEDS: MULTIVITAMIN TAB PO SCH (11:06)
[2017-08-12] MEDS: predniSONE 10 MG TAB PO SCH (11:07)
[2017-08-12] MEDS: diphenhydrAMINE HCL 2%/ZINC ACETATE 0.1% CREAM 30 APPLIC/30 GM TUBE TOPICAL PRN ×2 (11:08→23:30)
[2017-08-12] MEDS: FERROUS SULFATE 325 MG (65 MG ELEMENTAL IRON) TAB PO SCH ×2 (12:23→17:21)
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
[2017-08-12 19:12] VITALS: BP 124/70; PULSE 72; RESP 18; TEMP 97.1
[2017-08-12] MEDS: QUEtiapine FUMARATE 25 MG TAB PO SCH (20:24)
[2017-08-12] MEDS: REMOVE OLD NICOTINE PATCH T-DERMAL SCH (20:25)
[2017-08-12] MEDS: ATORVASTATIN 40 MG TAB PO SCH (20:25)
[2017-08-12] MEDS: diphenhydrAMINE HCL 25 MG CAP PO PRN (20:26)
[2017-08-13 05:57] VITALS: BP 122/70; PULSE 82; RESP 18; TEMP 97.9; O2SAT 97
[2017-08-13] MEDS: ASPIRIN EC 81 MG TABEC PO SCH (08:13)
[2017-08-13] MEDS: QUEtiapine FUMARATE 25 MG TAB PO SCH (08:13)
[2017-08-13] MEDS: FOLIC ACID 1 MG TAB PO SCH (08:13)
[2017-08-13] MEDS: predniSONE 10 MG TAB PO SCH (08:13)
[2017-08-13] MEDS: THIAMINE HCL 100 MG TAB PO SCH ×2 (08:13→10:33)
[2017-08-13] MEDS: MULTIVITAMIN TAB PO SCH (08:13)
[2017-08-13] MEDS: DOCUSATE SODIUM 50 MG/SENNA 8.6 MG TAB PO SCH (08:13)
[2017-08-13] MEDS: PANTOPRAZOLE SOD 40 MG DELAYED RELEASE TAB PO SCH (08:13)
[2017-08-13] MEDS: MAGNESIUM OXIDE 400 MG TAB PO SCH (08:13)
[2017-08-13] MEDS: NICOTINE 21 MG/24 HR PATCH T-DERMAL SCH (08:14)
[2017-08-13] MEDS: LACTULOSE SYRUP 20 GM/30 ML CUP PO SCH (08:14)
[2017-08-13] MEDS: amLODIPine BESYLATE 5 MG TAB PO SCH (08:15)
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
[2017-08-13] MEDS ORDERED: NICO21DI25 T-DERMAL (10:07)
[2017-08-13] MEDS ORDERED: SM A2CRE3 TOPICAL (10:08)
[2017-08-13] MEDS ORDERED: FOLI1TAB6 PO (10:08)
[2017-08-13] MEDS ORDERED: AMLO5 PO (10:08)
[2017-08-13] MEDS ORDERED: THERTAB15 PO (10:08)
[2017-08-13] MEDS ORDERED: FERR325T20 PO (10:08)
[2017-08-13] MEDS ORDERED: ASPI-99 PO (10:08)
[2017-08-13] MEDS ORDERED: PRED10 PO (10:08)
[2017-08-13] MEDS ORDERED: ATOR40TA16 PO (10:08)
[2017-08-13] MEDS ORDERED: GNP100TA3 PO (10:08)
[2017-08-13] MEDS: hydrOXYzine HCL 50 MG TAB PO PRN (10:25)
[2017-08-13] MEDS: FERROUS SULFATE 325 MG (65 MG ELEMENTAL IRON) TAB PO SCH (10:33)
[2017-08-13] MEDS ORDERED: QUET1TAB7 PO (11:34)
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
== END 2017-08-13 15:45 | DRG 882 ==
LOC: NEPD 02:23 → NEDA 13:11 → H250 14:00 → H260 08-08 15:56 → H4EA 08-09 12:21
PROVIDERS: ADMIT Psychiatry & Neurology Psychiatry; ATTEND Psychiatry & Neurology Psychiatry
DX: F43.20 Adjustment disorder, unspecified (principal); E46 Unspecified protein-calorie malnutrition; F01.50 Vascular dementia, unspecified severity, without behavioral disturbance, psychotic disturbance, mood disturbance, and anxiety; D64.9 Anemia, unspecified; I10 Essential (primary) hypertension; B86 Scabies; F10.20 Alcohol dependence, uncomplicated; E78.5 Hyperlipidemia, unspecified; Z59.0 Homelessness; Z96.651 Presence of right artificial knee joint; Z87.891 Personal history of nicotine dependence; L29.9 Pruritus, unspecified; K59.00 Constipation, unspecified; R11.2 Nausea with vomiting, unspecified
CPT/HCPCS: 70553; 74176; 80048; 80053; 80061; 80307; 81001; 82140; 82607; 83036; 83735; 84443; 85025; 85610; 85730; 86592; A9579; J1630; J7512